=== PATIENT | male | born 1985 | race Native Hawaiian/Other Pacific Islander ===

== ENCOUNTER 2018-10-02 11:37 | Emergency (ER) | payer OTHER ==
[~2018-10-02] VITALS: Ht 175.3 cm; Wt 83.9 kg
[2018-10-02 13:00] VITALS: BP 120/91; TEMP 97.7
== END 2018-10-02 13:30 | disposition short-term general hospital (02) ==
LOC: ED 11:43
DX: S92.322B Displaced fracture of second metatarsal bone, left foot, initial encounter for open fracture (principal); X95.8XXA Assault by other firearm discharge, initial encounter
CPT/HCPCS: 36415; 80307; 90715; 96374; 96375; 99285; J0295; J1885; J2175; J2550

== ENCOUNTER 2018-10-02 13:37 | Outpatient (CLI) | payer OTHER | END 2018-10-02 14:50 | disposition short-term general hospital (02) | LOC: AMB 13:37 | DX: S92.322B Displaced fracture of second metatarsal bone, left foot, initial encounter for open fracture (principal); X95.8XXA Assault by other firearm discharge, initial encounter | CPT/HCPCS: A0425; A0427 ==